=== PATIENT | female | born 1985 | race Caucasian/White ===

== ENCOUNTER 2024-04-20 07:28 | Outpatient (CLI) | payer OTHER, SELFPAY ==
[2024-04-20 08:29] LABS: Influenza A QL RT-PCR Negative (Negative); Influenza B QL RT-PCR Negative (Negative); RSV RNA, RT-PCR Negative (Negative); SARS-CoV-2 RNA PCR Negative (Negative)
== END 2024-04-20 07:29 | disposition home or self-care (01) ==
PROVIDERS: PCP Nurse Practitioner Family; Visit Provider Nurse Practitioner Family
DX: R68.89 Other general symptoms and signs (principal); Z20.822 Contact with and (suspected) exposure to COVID-19
CPT/HCPCS: 87637

== ENCOUNTER 2024-09-10 08:21 | Outpatient (CLI) | payer OTHER, SELFPAY ==
--- NOTE | ~2024-09-10 | MM_ITS ---
EXAMINATION: MM screening tyson BI w frank HISTORY: Screening TECHNIQUE: Craniocaudal and mediolateral oblique 3-D tomosynthesis images were obtained and synthetic 2-D images were generated. CAD analysis was submitted and interpreted. COMPARISON: No prior mammogram is available for comparison at this institution. BREAST PARENCHYMAL COMPOSITION: Not dense: There are scattered areas of fibroglandular density. FINDINGS: There is no evidence of suspicious mass, calcification, or architectural distortion to sugg est malignancy in either breast. There has been no suspicious interval change. IMPRESSION: 1. No mammographic evidence of malignancy. 2. Recommend routine screening mammography in one year. BI-RADS Category 1: Negative Reviewed, dictated and finalized at location A.
--- OUTSIDE RECORDS SUMMARY | 2024-09-10 08:24 | XMS_ITS | Clinical Summary ---
Author Organization [facility] Address [address] [place] [address] Care Team Providers Care Therapist Physical Name Role Phone Pcp, Hardy Martins Primary Care Provider Unav ailable Source Comments [facility],non-owned Affiliates and Associated Physician Practices is amultiple site organization consisting of ambulatory clinics and hospital sitesin [place], [place], [place] and [place]. This disclosure is being madepursuant to the Care Everywhere program and may not contain all information available regarding this patient. Last updated 18.[facility] Allergies No known active allergies Medications * Be aware that medications may not be up to date on this document. Alwaysverify current medications with the patient. FLUoxetine (PROzac) 20 MG capsule Take 1 (one) capsule by mouth once daily 90 capsule 1 06/27/2022 Active montelukast (Singulair) 10 MG tablet Take 1 (one) tablet by mouth once daily 30 tablet 11 06/27/2022 Active albuterol HFA (Proventil; Ventolin; Proair) 108 (90 Base) MCG/ACT inhaler INHALE 2 PUFFS BY MOUTH EVERY 6 HOURS NEEDED 8 g 09/27/2022 Active Active Problems Problem Noted Date Diagnosed Date Asthma 11/08/2013 Immunizations Immunization Administration Dates Next Due MMR 11/12/2011 Pneumococcal Pcv13 Conj 08/01/2021 TDAP (7yrs+) 11/14/2011 Social History Tobacco Use Types Packs/Day Years Used Date Smoking Tobacco: Former Smokeless Tobacco: Never Comments:2.5 yrs non smoker Alcohol Use Standard Drinks/Week Comments Not Asked 0 (1 standard drink = 0.6 oz pur e alcohol) PHQ-2 Answer Date Recorded PHQ2 TOTAL SCORE 0 06/27/2022 Comments No Sex and Gender Information Value Date Recorded Sex Assigned at Not on file Legal Sex 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 Gender Identity Not on file Sexual Orientation Not on file Last Filed Vital Signs Vital Sign Reading Time Taken Comments Blood Pressure 142/82 06/27/2022 10:13 AM POWDER OPERATOR Pulse 74 06/27/2022 9:52 AM POWDER OPERATOR Temperature 36.4 C (97.6 F) 06/27/2022 9:52 AM POWDER OPERATOR Respiratory Rate - - Oxygen Saturation 98% 06/27/2022 9:52 AM POWDER OPERATOR Inhaled Oxygen Concentration - - Weight 82.6 kg (182 lb) 06/27/2022 9:52 AM POWDER OPERATOR Height 152.4 cm (5') 06/27/2022 9:52 AM POWDER OPERATOR Body Mass Index 35.54 06/27/2022 9:52 AM POWDER OPERATOR Plan of Treatment Health Maintenance Due Date Last Done Comments LIPID TESTING 1983 MAMMOGRAM 1983 HIV SCREENING 1998 HEPATITIS C SCREENING 01/25/2001 HEPATITIS B VACCINE (1 of 3 - 19+ 3-dose series) 2002 PAP SMEAR 11/09/2015 11/08/2012 (Previously completed) PNEUMOCOCCAL VACCINE (2 of 2 - PPSV23) 09/26/2021 08/01/2021 DTAP/TDAP/TD VACCINES (2 - T d or Tdap) 11/13/2021 11/14/2011 COVID-19 VACCINE (3 - 2023-2 5 season) 2024 02/20/2021, 01/23/2021 DEPRESSION SCREENING 05/05/2024 06/27/2022, 08/01/2021 INFLUENZA VACCINE (Season Ended) 2025 ZOSTER VACCINE (1 of 2) 2033 HIB VACCINE Aged Out No longer eligi ble based on patient's age to complete this topic HPV VACCINE Aged Out No longer eligi ble based on patient's age to complete this topic MENINGOCOCCAL (Group B) VACCINE SHARED DECISION-MAKING Aged Out No longer eligible based on patient's age to complete this topic MENINGOCOCCAL GROUPS A/C/Y/W VACCINE Aged Out No longer eligible b ased on patient's age to complete this topic Insurance [facility] Care Teams Therapist Physical Relationship Specialty Start Date End Date Hardy Ramos PCP - General 11/07/22
== END 2024-09-10 08:22 | disposition home or self-care (01) ==
LOC: ANHIMG 08:23
PROVIDERS: PCP Nurse Practitioner Family; Visit Provider Nurse Practitioner Family
DX: Z12.31 Encounter for screening mammogram for malignant neoplasm of breast (principal)
CPT/HCPCS: 77063; 77067

== ENCOUNTER 2025-04-13 08:27 | Emergency (ER) | payer OTHER, SELFPAY ==
--- NOTE | ~2025-04-13 | XR_ITS ---
EXAMINATION: XR chest 2V, 04/13/2025 8:58 ONLINE MEDIA DIRECTOR HISTORY: Cough COMPARISON: No comparisons available. Technique: 2 views obtained. Findings: There are bilateral infiltrates noted, some of these appears slightly nodular. No pneumothorax. Heart is normal size. Mediastinal and hilar contours are within normal limits. Bony thorax no acute abnormality. Impression: Bilateral pneumonia. Follow-up is recommended to ensure complete resolution. Reviewed, dictated and finalized at location P. NE MEDIA DIRECTOR Impression: Bilateral pneumonia. Follow-up is recommended to ensure complete resolution.
[2025-04-13 08:41] VITALS: BP 127/71; PULSE 96; RESP 18; TEMP 36.9; O2SAT 96
--- NOTE | 2025-04-13 09:01 | ED.URI ---
HPI - URI/Sore Throat General Chief Complaint: Extremity Problem,Nontraumatic Stated Complaint: URI Time Seen by Provider: 04/13/25 08:52 Source: patient and RN notes reviewed Mode of arrival: ambulatory Limitations: no limitations History of Present Illness HPI Narrative: 40-year-old female presents with concern for right mid back pain. Reports pain is worsened when she coughs or takes a deep breath. She reports occasional coughing. She is reporting chest congestion, body aches and chills. She has been taking [place] cold and flu and ibuprofen. She denies runny nose, stuffy nose, sore throat MD elicited complaint: cough Related Data Home Medications ?Medication ?Instructions ?Recorded ?Confirmed ?Last Taken ?Type omeprazole 20 mg tablet,delayed 20 mg PO DAILY 01/20/23 03/07/25 Unknown History release Allergies Allergy/AdvReac Type Severity Reaction Status Date / Time No Known Allergies Allergy Verified 04/13/25 08:38 Review of Systems Review of Systems: CONSTITUTIONAL: Reports malaise, chills. Denies sweats, or fever. EYES: Denies visual changes, redness, or discharge. ENT: Reports rhinorrhea, congestion, sinus pain, otalgia and sore throat. CARDIOVASCULAR: Denies chest pain, palpitations, or edema. RESPIRATORY: Reports occasional cough. Denies dyspnea. GASTROINTESTINAL: Denies abdominal pain, nausea, vomiting, diarrhea SKIN: Denies rash or itching. MUSCULOSKELETAL: Reports right back pain without tenderness NEUROLOGIC: Denies headache. All systems reviewed & are unremarkable except as noted in HPI and below PMFSH Past Medical History Medical History (Updated 04/13/25 @ 09:16 by Yolette Braswell APRN) Enlarged tonsils Hypersomnia Sleep related teeth grinding Snoring BMI 34.0-34.9,adult BMI 40.0-44.9, adult Diabetes Breast cancer screening Prediabetes Hypertension Hyperlipidemia BMI 37.0-37.9, adult Screening for diabetes mellitus BMI 35.0-35.9,adult Elevated BP without diagnosis of hypertension Migraines Anxiety Asthma Family History Family History Grandparent Lung cancer Mother Hypertension Social History Social History Smoking status: Current some day smoker Tobacco type: cigarettes and e-cigarettes/vaping Alcohol intake: current Substance use: never Lack of Transportation: No Lack of Food: Never True Current Housing: I Have Housing Concerned About Future Housing: No Difficulty Paying Gas/Electric Bills: No Difficulty Paying for Meds: No Currently Unemployed: No Education: Associate Degree Difficulty w/ Childcare or Family Care: No Comments At time of signature, agree with nursing past medical, surgical, social and family history. There is no relevant family history pertinent to the presenting complaint Exam Narrative: GENERAL: Well-appearing, well-nourished, and in no acute distress. HEAD: Normocephalic EYES: PERRLA, conjunctivae clear ENT: Nares clear. Mucous membranes moist. TM pearly morrissey with dull light reflex bilaterally; no tragal tenderness. Oropharynx not erythematous without lesions. Tonsils not enlarged and without exudate, no drooling, no hoarseness, no trismus, uvula midline. NECK: Supple. No lymphadenopathy CHEST: Right expiratory wheeze and mild rhonch, otherwise Clear to auscultation, breath sounds equal. No rales, or stridor. No respiratory distress, speaks in full sentences. HEART: Regular rate and rhythm. No murmur heard. SKIN: Warm, dry, no rash. NEURO: Alert and oriented x3. PSYCH: Normal mood and affect Course Course Emergency Course: Patient is aware of diagnosis, understands and agrees to treatment plan. Anticipatory guidance given. Patient agrees to follow-up as directed and is aware of reasons to seek care at the emergency department. Portions of this record may have been created with voice recognition software Level of Care: Express Care Visit Vital Signs Vital signs: Vital Signs Temperature 98.5 F 04/13/25 08:41 Pulse Rate 96 04/13/25 08:41 Respiratory Rate 18 04/13/25 08:41 Blood Pressure 127/71 04/13/25 08:41 Pulse Oximetry 96 04/13/25 08:41 Oxygen Delivery Room Air 04/13/25 08:41 Temperature 98.5 F 04/13/25 08:41 Pulse Rate 96 04/13/25 08:41 Respiratory Rate 18 04/13/25 08:41 Blood Pressure 127/71 04/13/25 08:41 Pulse Oximetry 96 04/13/25 08:41 Oxygen Delivery Room Air 04/13/25 08:41 MDM Differential Diagnosis Differential Diagnosis: I evaluated this patient in the [facility]. History is obtained from patient who is an independent historian and physical exam was performed.? Available medical records were reviewed. ? Exam findings and relevant testing show no acute concerns or changes; patient is non-toxic appearing and is in no distress. ? Differential diagnosis considered: [place] virus, strep pharyngitis, allergic rhinitis, upper respiratory tract infection, sinusitis, rhinosinusitis, nasopharyngitis. viral pharyngitis, otitis media, otitis externa, pneumonia, bronchitis, viral cough syndrome, viral syndrome, and influenza. Differential diagnosis and treatment plan were discussed with the patient. Patient agrees with discussion and after shared medical decision making agrees with plan of care. All questions were answered to the patient's satisfaction. Patient is appropriate for outpatient treatment and follow-up. Imaging Data Radiologist's impression: ITS Impressions Chest X-Ray 04/13/25 09:09 Impression: Bilateral pneumonia. Follow-up is recommended to ensure complete resolution. Discharge Plan Discharge Clinical Impression: Pneumonia Patient Disposition: Home Condition: Stable Instructions: Antibiotic Form, Pneumonitis (ED) Additional Instructions: Take antibiotics as directed Pneumonia is a lung infection that can cause a fever, cough, and trouble breathing. Please continue all antibiotics as directed until complete. Nutrition is important - eat small frequent meals. Get lots of rest and drink fluids. Call your Primary Care Doctor upon arrival home from the hospital and make a follow-up appointment in 3-5 days. If your cough worsens, you develop a persistent fever you develop shaking chills, a fast heartbeat, trouble breathing and/or feel you are are breathing much faster than usual, call your Primary Care Doctor or go to the ER. Make sure you wash your hands frequently. Patient Language: Uzbek Prescriptions: New doxycycline monohydrate 100 mg tablet 100 mg PO BID 7 Days Qty: 14 0RF No Action omeprazole 20 mg tablet,delayed release (DR/EC) 20 mg PO DAILY fluticasone propion-salmeterol [Advair Diskus] 250-50 mcg/dose blister with device 1 inh inhalation BID Qty: 60 11RF atorvastatin 10 mg tablet 10 mg PO QHS Qty: 90 3RF metoprolol succinate 25 mg tablet extended release 24 hr 25 mg PO DAILY Qty: 90 3RF montelukast 10 mg tablet 10 mg PO DAILY Qty: 90 3RF buspirone 7.5 mg tablet 7.5 mg PO BID PRN (Reason: anxiety) Qty: 60 2RF Mounjaro 5 mg/0.5 mL pen injector 5 mg subcut WEEKLY Qty: 2 5RF albuterol sulfate 90 mcg/actuation HFA aerosol inhaler 1 - 2 inh inhalation Q4-6H PRN (Reason: shortness of breath or wheezing) Qty: 8.5 11RF Follow-up/Referrals: Mónica Morgan APRN [Primary Care Provider, Family Practice] Stand Alone Forms: Work/School Release IP Time of Disposition: 09:16
== END 2025-04-13 09:23 | disposition home or self-care (01) ==
PROVIDERS: Emergency Provider Nurse Practitioner; PCP Nurse Practitioner Family
DX: J18.9 Pneumonia, unspecified organism (principal); F17.290 Nicotine dependence, other tobacco product, uncomplicated; E11.9 Type 2 diabetes mellitus without complications; Z79.85 Long-term (current) use of injectable non-insulin antidiabetic drugs; I10 Essential (primary) hypertension; E78.5 Hyperlipidemia, unspecified; J45.909 Unspecified asthma, uncomplicated
CPT/HCPCS: 71046; 99213; G0463